=== PATIENT | female | born 1955 | race Two or more races ===

== ENCOUNTER → 2024-03-14 | Outpatient (CLI) | payer OTHER, SELFPAY ==
[2024-03-14 08:51] LABS: Glucose Estimated Average 131 mg/dL (80-131); Hemoglobin A1C 6.2 % Hgb (4.8-6.0)
[2024-03-14 09:04] LABS: Alanine Aminotransferase 25 U/L (10-49); Albumin, Serum 4.9 gm/dL (3.4-4.8); Albumin/Globulin Ratio 1.8 (1.2-2.2); Alkaline Phosphatase 67 U/L (46-116); Anion Gap 8 (7-16); Aspartate Amino Transferase 26 U/L (0-34); BUN/Creatinine Ratio 19 Ratio (12-20); Bilirubin,Total 0.5 mg/dL (0.3-1.2); Blood Urea Nitrogen 13 mg/dL (9-23); Calcium 10.3 mg/dL (8.3-10.6); Calcium (Corrected) 10.3 mg/dL (8.5-10.1); Carbon Dioxide 25.2 mMol/L (20.0-31.0); Chloride 106 mMol/L (98-107); Creatinine (Component) 0.7 mg/dL (0.6-1.3); Free T4 (Free Thyroxine) 1.32 ng/dL (0.89-1.76); Globulin 2.7 gm/dL (2.3-3.5); Glucose 102 mg/dL (74-106); Osmolality,Calculated 277 (275-295); Potassium 4.1 mMol/L (3.4-5.1); Sodium 139 mMol/L (136-145); Thyroid Stimulating Hormone 1.06 uIU/mL (0.55-4.78); Total Protein 7.6 gm/dL (5.7-8.2); eGFR > 60 See Note
[2024-03-14 09:40] LABS: Creatinine MALB Rnd Ur 42 mg/dL (30-125); Microalbumin Creat Ratio 12 mg/gCrea (<30); Microalbumin, Random Urine 5 mg/L (0-300)
== END | disposition home or self-care (01) ==
LOC: COPL 06:42
PROVIDERS: PCP Internal Medicine; Referring Provider Internal Medicine; Visit Provider Internal Medicine
DX: E11.9 Type 2 diabetes mellitus without complications (principal)
CPT/HCPCS: 36415; 80053; 82043; 82570; 83036; 84439; 84443

== ENCOUNTER → 2024-07-06 | Outpatient (CLI) | payer OTHER, SELFPAY ==
--- NOTE | 2024-07-06 08:15 | EKG_ITS ---
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
[2024-07-06 08:42] LABS: Basophils # (Auto) 0.1 Thou/mm3 (0.0-0.2); Basophils % (Auto) 1 % (0-2.5); Eosinophils # (Auto) 0.3 Thou/mm3 (0.0-0.5); Eosinophils % (Auto) 4 % (0-10); Hematocrit 36.3 % (36.0-46.0); Hemoglobin 12.1 g/dL (12.0-16.0); Immature Granulocytes % (Auto) 0 % (0-0); Immature Granulocytes Auto 0.02 Thou/mm3 (0.00-0.00); Lymphocytes # (Auto) 2.4 Thou/mm3 (1.0-4.8); Lymphocytes % (Auto) 30 % (10-50); Mean Corpuscular HGB Conc 33.3 g/dl (31.0-37.0); Mean Corpuscular Hemoglobin 30.4 pg (25.0-35.0); Mean Corpuscular Volume 91 fL (80-100); Monocytes # (Auto) 0.5 Thou/mm3 (0.0-0.8); Monocytes % (Auto) 6 % (0-12); Neutrophils # (Auto) 4.9 Thou/mm3 (1.8-7.7); Neutrophils % (Auto) 60 % (37-80); Nucleated Red Blood Cell % 0 /100 WBC (0); Platelet Count 248 Thou/mm3 (140-440); RDW Standard Deviation 41.8 fL (36.4-46.3); Red Blood Count 3.98 Miln/mm3 (4.00-5.20); White Blood Count 8.2 Thou/mm3 (3.6-11.0)
[2024-07-06 09:00] LABS: Glucose Estimated Average 134 mg/dL (80-131); Hemoglobin A1C 6.3 % Hgb (4.8-6.0); Phosphorous 3.4 mg/dL (2.4-5.1)
== END | disposition home or self-care (01) ==
LOC: COPL 07:28
PROVIDERS: PCP Internal Medicine; Referring Provider Orthopaedic Surgery; Visit Provider Orthopaedic Surgery
DX: M75.121 Complete rotator cuff tear or rupture of right shoulder, not specified as traumatic (principal); M25.511 Pain in right shoulder
CPT/HCPCS: 36415; 83036; 84100; 85025; 93005

== ENCOUNTER 2024-10-14 18:30 | Emergency (ER) | payer OTHER, SELFPAY ==
[2024-10-14 18:32] VITALS: BMI 23.6
--- NOTE | 2024-10-14 18:34 | EKG_ITS ---
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
[2024-10-14 18:51] VITALS: BP 161/82; PULSE 85; RESP 18; TEMP 37.2; O2SAT 97
--- NOTE | 2024-10-14 18:53 | XR_ITS ---
Examination: CT brain head without contrast. 2-D sagittal coronal reconstructions Date and time of exam:October 14, 2024 2000 hours Comparison January 28, 2019 INDICATIONS: Headache dizziness today CTDI: vol (mGy):47 DLP: (mGycm):958 Technique: Multiple CT axial sections of the brain have been obtained, 5 mm slice thickness. Contrast has not been administered. 2-D sagittal, coronal reconstructions have been obtained Low dose protocols were performed. One or more of the following dose reduction techniques were used; automated exposure control, adjustment of the mA and/or KV according to patient size, use of iterative reconstruction technique. Findings: No significant ventricular enlargement. Intra-axial or extra-axial hemorrhage density is not seen. No mass effect or midline shift Basal cisterns are not remarkable. Fourth ventricle is midline. Cranial vault intact. Impression: Negative for acute hemorrhage, mass effect or midline shift Advise clinical correlation and follow up accordingly
--- NOTE | 2024-10-14 18:53 | XR_ITS ---
Examination: PA chest single view TECHNIQUE: Upright PA chest single view Date and time: October 14, 2024, 1917 hours Comparison March 03, 2016 INDICATIONS: Cardiac palpitations today FINDINGS: Normal heart size. The lungs are clear. The osseous structures are intact. IMPRESSION: No active disease.
--- NOTE | 2024-10-14 18:53 | PD.EDRME ---
Rapid Medical Screening Exam RME Arrival date/time: 10/14/24 18:30 Chief Complaint: Headache Time Seen by Provider: 10/14/24 18:46 Vital signs: Vital Signs Temperature 98.9 F 10/14/24 18:51 Pulse Rate 85 10/14/24 18:51 Respiratory Rate 18 10/14/24 18:51 Blood Pressure 161/82 H 10/14/24 18:51 Pulse Oximetry (%) 97 10/14/24 18:51 Oxygen Delivery Method Room Air 10/14/24 18:51 RME Narrative: Intermittent palpitations, lightheadedness and headaches for the past week.
[2024-10-14 19:19] LABS: Basophils # (Auto) 0.1 Thou/mm3 (0.0-0.2); Basophils % (Auto) 1 % (0-2.5); Eosinophils # (Auto) 0.3 Thou/mm3 (0.0-0.5); Eosinophils % (Auto) 3 % (0-10); Hematocrit 34.6 % (36.0-46.0); Hemoglobin 11.7 g/dL (12.0-16.0); Immature Granulocytes % (Auto) 0 % (0-0); Immature Granulocytes Auto 0.03 Thou/mm3 (0.00-0.00); Lymphocytes # (Auto) 4.2 Thou/mm3 (1.0-4.8); Lymphocytes % (Auto) 43 % (10-50); Mean Corpuscular HGB Conc 33.8 g/dl (31.0-37.0); Mean Corpuscular Hemoglobin 30.7 pg (25.0-35.0); Mean Corpuscular Volume 91 fL (80-100); Monocytes # (Auto) 0.7 Thou/mm3 (0.0-0.8); Monocytes % (Auto) 7 % (0-12); Neutrophils # (Auto) 4.5 Thou/mm3 (1.8-7.7); Neutrophils % (Auto) 46 % (37-80); Nucleated Red Blood Cell % 0 /100 WBC (0); Platelet Count 279 Thou/mm3 (140-440); RDW Standard Deviation 43.8 fL (36.4-46.3); Red Blood Count 3.81 Miln/mm3 (4.00-5.20); White Blood Count 9.6 Thou/mm3 (3.6-11.0)
[2024-10-14 19:41] LABS: Alanine Aminotransferase 16 U/L (10-49); Albumin, Serum 4.9 gm/dL (3.4-4.8); Albumin/Globulin Ratio 2.3 (1.2-2.2); Alkaline Phosphatase 61 U/L (46-116); Anion Gap 7 (7-16); Aspartate Amino Transferase 23 U/L (0-34); BUN/Creatinine Ratio 23 Ratio (12-20); Bilirubin,Total 0.3 mg/dL (0.3-1.2); Blood Urea Nitrogen 14 mg/dL (9-23); Calcium 10.7 mg/dL (8.3-10.6); Calcium (Corrected) 10.7 mg/dL (8.5-10.1); Carbon Dioxide 24.3 mMol/L (20.0-31.0); Chloride 106 mMol/L (98-107); Creatinine (Component) 0.6 mg/dL (0.6-1.3); Estimated Creatinine Clearance 67.7 mL/min (>60); Free T4 (Free Thyroxine) 1.29 ng/dL (0.89-1.76); Globulin 2.1 gm/dL (2.3-3.5); Glucose 119 mg/dL (74-106); Magnesium 1.8 mg/dL (1.6-2.6); Osmolality,Calculated 275 (275-295); Sodium 137 mMol/L (136-145); Thyroid Stimulating Hormone 1.44 uIU/mL (0.55-4.78); Troponin I < 0.002 ng/mL (0.0-0.045); eGFR > 60 See Note
--- NOTE | 2024-10-14 21:29 | EDNOTE_ITS ---
<Statement entered by Odalys Luz MD - 10/15/24 04:32> As co-signing physician, I was present and available for consult prn. I concur with the plan and care as documented by the midlevel provider. ED Headache RME/HPI General Chief Complaint: Headache Stated Complaint: HURT, PALPITATIONS, AND DIZZINESS FOR 1 WEEK Time Seen by Provider: 10/14/24 18:46 Arrival date/time: 10/14/24 18:30 RME / HPI RME / HPI Narrative: 69-year-old female patient was brought in by family for evaluation regarding headache. Patient has been having on and off headache for 1 week, associated with dizziness, palpitation, severity moderate. Patient symptoms started about 3 hours ago, patient had to taffy puller due to headache and dizziness. Denies any chest pain. She took her losartan 3 hours ago prior to ER visit. Patient denies any blurry vision. Denies any upper or lower extremity weakness. Denies any slurring of speech patient is ambulatory . Related Data Home Medications ?Medication ?Instructions ?Recorded ?Confirmed levothyroxine 75 mcg capsule 75 mcg PO QDAY 01/28/19 0 07/13/22 losartan 50 mg tablet 50 mg PO QDAY 01/28/1907/13 rosuvastatin 5 mg tablet 5 mg PO QDAY 01/28/19 sitagliptin phosphate 100 mg 100 mg PO QDAY 01/28/19 0 07/13/22 tablet (Januvia) alendronate 70 mg tablet 70 mg PO QWEEK 07/10/2206/18 insulin glargine 100 unit/mL (3 10 unit subcut QDAY 07/13/22 mL) subcutaneous pen (Lantus Solostar U-100 Insulin) sitagliptin phos 50 mg-metformin 1 tab PO QDAY 3 07/13/22 ER 1,000 mg tablet,extend rel 24h mp (Janumet XR) Allergies Allergy/AdvReac Type Severity Reaction Status Date / Time nitrofurantoin Allergy Severe RASH / Verified 10/14/24 18:34 SHORTNESS OF BREATH Sulfa (Sulfonamide Allergy Severe RASH / Verified 10/14/24 18:34 Antibiotics) SHORTNESS OF BREATH Review of Systems Review of Systems Narrative Review of Systems: Review of system reviewed and within normal limits except mentioned in HPI ED Exam Narrative Physical exam: VITAL SIGNS: Reviewed. GENERAL APPEARANCE: Alert and interactive, follows commands, no acute distress, HEAD AND FACE: Non-traumatic. ENT: PERRL, pink conjunctivitis, eyelid no trauma, Mucous membrane moist. NECK: Supple, nontender, no nuchal rigidity. CHEST: No tenderness, no crepitus, no paradoxical movement, no retractions. LUNGS: Clear, well ventilated, symmetric, no rales, no wheezing, no ronchi, no stridor, good breath sounds bilaterally. HEART: Regular rate, regular rhythm, no murmur, no gallops. ABDOMEN: Soft, positive bowel sounds, nondistended, no guarding, nontender, no rebound, no masses, RECTAL: Deferred. GENITAL: Deferred. NEUROLOGICAL: Gross motor function intact sensory function intact, Appropriate for age. MUSCULOSKELETAL: low back nontender, full range of motion. EXTREMITIES: Nontender, full range of motion. SKIN: Color pink, dry, no rash, no lacerations, no abrasions, no contusions. LYMPHATICS: Deferred. Course Quality Measures none Orders Category Date Time Status EKG (ED ONLY) *Do not use* NOW Care 10/14/24 18:[address] head/brain wo con Stat Exams 10/14/24 18:53 Completed CXR [XR chest 1V] Stat Exams 10/14/24 18:53 Completed EKG (ED Only) Stat Exams 10/14/24 18:34 Draft CBC Stat Lab 10/14/24 19:03 Completed CMP [Comprehensive Metabolic Panel] Stat Lab 10/14/24 19:03 Completed Free T4 (Free Thyroxine) Stat Lab 10/14/24 19:03 Completed Magnesium Stat Lab 10/14/24 19:03 Completed TSH [Thyroid Stimulating Hormone] Stat Lab 10/14/24 19:03 Completed Troponin I Stat Lab 10/14/24 19:03 Completed UA, C/S IF [Urinalysis, C/S if Indicated] Stat Lab 10/14/24 21:46 Completed Acetaminophen Tab [Tylenol ES Tab] Med 10/14/24 21:32 Discontinued 500 mg PO X1 ONE Vital Signs Vital signs: Vital Signs Temperature 98.9 F 10/14/24 18:51 Pulse Rate 85 10/14/24 18:51 Respiratory Rate 18 10/14/24 18:51 Blood Pressure 161/82 H 10/14/24 18:51 Pulse Oximetry (%) 97 10/14/24 18:51 Oxygen Delivery Method Room Air 10/14/24 18:51 Headache MDM Narrative MDM Narrative:: 69-year-old female patient was brought in by family for evaluation regarding headache. Patient has been having on and off headache for 1 week, associated with dizziness, palpitation, severity moderate. Patient symptoms started about 3 hours ago, patient had to taffy puller due to headache and dizziness. Denies any chest pain. She took her losartan 3 hours ago prior to ER visit. Patient denies any blurry vision. Denies any upper or lower extremity weakness. Denies any slurring of speech patient is ambulatory . CT scan of the head came back with no acute pathology. Reversible workup also came back normal troponin is normal urinalysis no UTI. I personally reviewed and interpreted the x-ray of this patient. There is no acute abnormalities found, no infiltrates no pneumothorax no hemothorax normal chest x-ray. Review of other structures was without significant abnormal findings also. I additionally reviewed the radiologist report and agree with the interpretation. EKG showed normal sinus rhythm, ventricular rate of 82 bpm, no ST segment elevation or depression noted. Results discussed with the patient. I ordered for Tylenol however patient refused Tylenol. She told me that she is okay and stable to go home. I told her to monitor her blood pressure and show it to her doctor. Patient agrees with the plan she is not having any chest pain prior to discharge. She is ambulatory unaided. Patient data External records reviewed:: None Clinical information provided by:: patient and family Social determinants that could affect healthcare access:: none Patient has the following chronic illnesses:: Hypertension How is presenting disease/condition affected by chronic disease/condition?: uneffected by Evaluation data The following diagnostics were reviewed and interpreted by me:: lab results, radiology exam(s) and EKG tracing(s) Lab and/or radiology exams considered but not ordered:: None Interpretation Summary: None Medications / Prescriptions Medications or Prescriptions considered but not ordered:: None Medication administrations:: Medication Administration History Discontinued Medications Acetaminophen (Acetaminophen 500 Mg Tablet) 500 mg PO X1 ONE Stop: 10/14/24 21:33 Last Admin: 10/14/24 21:43 Dose: Not Given Documented By: Non-Admin Reason: Patient Refused Tylenol Consultations Consultation(s) initiated? (list below): No Diagnosis Differential diagnosis headache: migraine, tension headache and headache Most likely diagnosis given after review of the tests above:: Headache Admission Indicated Admission indicated?: not indicated Admission Request Was there a request for admission?: No Disposition Plan Disposition Plan: Discharge Discharge Attestation Discharge Attestation: The patient and all family members were given an opportunity to ask questions and understood the discharge instructions. Discharge instructions specifically effects, indications for sooner follow up or return to the emergency department, and the expected course of current diagnosis. Patient condition: Stable Discharge Plan Plan Patient Disposition: HOME (Self Care) Discharge Disposition comment: Stable Prescriptions/Referrals Prescriptions/Med Rec: No Action losartan 50 mg Tablet 50 mg PO QDAY rosuvastatin 5 mg Tablet 5 mg PO QDAY Januvia 100 mg Tablet 100 mg PO QDAY levothyroxine 75 mcg Capsule 75 mcg PO QDAY alendronate 70 mg tablet 70 mg PO QWEEK insulin glargine [Lantus Solostar U-100 Insulin] 100 unit/mL (3 mL) insulin pen 10 unit SUBCUT QDAY Janumet XR 50-1,000 mg tablet, ER multiphase 24 hr 1 tab PO QDAY Referrals: Addis Phillips MD [Primary Care Provider] - In 1 week Problem List Clinical Impression: Headache Patient/Caregiver Discharge Instructions Discharge Activity: activity as tolerated Education Materials: Self-Care for Headaches Additional Instructions: Thank you for the opportunity for serving you today. You are stable for discharged . You are advised to: Follow-up with your PCP in 1 to 2 days Return to ED for worsening of symptoms Increase oral fluids Monitor your blood pressure, log it twice a day and show it to your doctor after 1 week You may take Tylenol or Motrin as needed for headache Print Language: Cymraes Stand Alone Forms: Alejandra Award Info., Patient Portal Info Letter PA/YASMINE Supervising Physician PA/YASMINE Supervising Physician: MD Natty
[2024-10-14 21:56] LABS: Collection Type, Urine Clean Catch
[2024-10-14 22:07] LABS: Bilirubin,Urine Negative (Negative); Blood,Urine Negative (Negative); Clarity,Urine Clear (Clear/Hazy); Color,Urine Lt-Yellow (Lt Yel-Yel); Culture Indicated,Urine Not Indicated; Glucose, Urine Negative (Negative); Ketones,Urine Negative (Negative); Leukocyte Esterase,Urine Negative (Negative); Nitrite,Urine Negative (Negative); PH,Urine 6.5 (5.0-7.0); Protein,Urine Negative (Neg - Trace); RBC,Urine 4 /hpf (0-3); Specific Gravity,Urine 1.009 (1.001-1.035); Squamous Epithelial Cell,Urine 1 /hpf (0-5); Urobilinogen,Urine Negative mg/dL (0.0-1.0); WBC,Urine 1 /hpf (0-5)
== END 2024-10-14 22:32 | disposition home or self-care (01) ==
PROVIDERS: Nurse Practitioner Family; Physician Assistant; Emergency Provider Emergency Medicine; PCP Internal Medicine
DX: R51.9 Headache, unspecified (principal); R00.2 Palpitations
CPT/HCPCS: 36415; 70450; 71045; 80053; 81001; 83735; 84439; 84443; 84484; 85025; 93005; 99284

== ENCOUNTER → 2024-11-21 | Outpatient (CLI) | payer OTHER, SELFPAY ==
[2024-11-21 11:55] LABS: Creatinine MALB Rnd Ur 15 mg/dL (30-125); Microalbumin, Random Urine < 3 mg/L (0-300)
== END | disposition home or self-care (01) ==
LOC: SLDO 10:15
PROVIDERS: PCP Internal Medicine; Referring Provider Internal Medicine; Visit Provider Internal Medicine
DX: E11.9 Type 2 diabetes mellitus without complications (principal)
CPT/HCPCS: 82043; 82570

== ENCOUNTER → 2024-12-27 | Outpatient (CLI) | payer OTHER, SELFPAY ==
[2024-12-27 09:32] LABS: Basophils # (Auto) 0.1 Thou/mm3 (0.0-0.2); Basophils % (Auto) 1 % (0-2.5); Eosinophils # (Auto) 0.3 Thou/mm3 (0.0-0.5); Eosinophils % (Auto) 3 % (0-10); Hematocrit 34.7 % (36.0-46.0); Hemoglobin 11.4 g/dL (12.0-16.0); Immature Granulocytes Auto 0.01 Thou/mm3 (0.00-0.00); Lymphocytes # (Auto) 3.1 Thou/mm3 (1.0-4.8); Lymphocytes % (Auto) 37 % (10-50); Mean Corpuscular HGB Conc 32.9 g/dl (31.0-37.0); Mean Corpuscular Hemoglobin 30.2 pg (25.0-35.0); Mean Corpuscular Volume 92 fL (80-100); Monocytes # (Auto) 0.7 Thou/mm3 (0.0-0.8); Monocytes % (Auto) 8 % (0-12); Neutrophils # (Auto) 4.3 Thou/mm3 (1.8-7.7); Neutrophils % (Auto) 51 % (37-80); Nucleated Red Blood Cell # 0.00 Thou/mm3 (0.00-0.00); Nucleated Red Blood Cell % 0 /100 WBC (0); Platelet Count 287 Thou/mm3 (140-440); RDW Standard Deviation 43.4 fL (36.4-46.3); Red Blood Count 3.77 Miln/mm3 (4.00-5.20); White Blood Count 8.4 Thou/mm3 (3.6-11.0)
[2024-12-27 09:46] LABS: Glucose Estimated Average 137 mg/dL (80-131); Hemoglobin A1C 6.4 % Hgb (4.8-6.0)
[2024-12-27 09:53] LABS: Cardiac Risk Estimate 2.3 RATIO (3.7-5.6); Cholesterol 137 mg/dL (132-200); Free T4 (Free Thyroxine) 1.02 ng/dL (0.89-1.76); HDL Cholesterol 60 mg/dL (40-60); LDL Cholesterol,Calculated 58 mg/dL (0-130); Thyroid Stimulating Hormone 5.09 uIU/mL (0.55-4.78); Triglycerides 95 mg/dL (30-150)
== END | disposition home or self-care (01) ==
LOC: COPL 07:56
PROVIDERS: PCP Internal Medicine; Referring Provider Internal Medicine; Visit Provider Internal Medicine
DX: E11.9 Type 2 diabetes mellitus without complications (principal); D50.0 Iron deficiency anemia secondary to blood loss (chronic); E03.4 Atrophy of thyroid (acquired)
CPT/HCPCS: 36415; 80061; 83036; 84439; 84443; 85025

== ENCOUNTER → 2025-03-06 | Outpatient (CLI) | payer OTHER, SELFPAY ==
[2025-03-06 07:57] LABS: Basophils # (Auto) 0.1 Thou/mm3 (0.0-0.2); Basophils % (Auto) 1 % (0-2.5); Eosinophils # (Auto) 0.2 Thou/mm3 (0.0-0.5); Eosinophils % (Auto) 2 % (0-10); Hematocrit 34.6 % (36.0-46.0); Hemoglobin 11.7 g/dL (12.0-16.0); Immature Granulocytes Auto 0.02 Thou/mm3 (0.00-0.00); Immature Reticulocyte Fraction 8.4 % (3.0-15.9); Lymphocytes # (Auto) 3.6 Thou/mm3 (1.0-4.8); Lymphocytes % (Auto) 34 % (10-50); Mean Corpuscular HGB Conc 33.8 g/dl (31.0-37.0); Mean Corpuscular Hemoglobin 31.4 pg (25.0-35.0); Mean Corpuscular Volume 93 fL (80-100); Monocytes # (Auto) 0.7 Thou/mm3 (0.0-0.8); Monocytes % (Auto) 6 % (0-12); Neutrophils # (Auto) 5.9 Thou/mm3 (1.8-7.7); Neutrophils % (Auto) 56 % (37-80); Nucleated Red Blood Cell # 0.00 Thou/mm3 (0.00-0.00); Nucleated Red Blood Cell % 0 /100 WBC (0); Platelet Count 249 Thou/mm3 (140-440); RDW Standard Deviation 44.5 fL (36.4-46.3); Red Blood Count 3.73 Miln/mm3 (4.00-5.20); Reticulocyte % (Auto) 1.3 % (0.5-1.5); Reticulocyte Absolute Auto 48.5 Biln/L (25.0-75.0); Reticulocyte Hgb Content 35.5 pg (28.0-35.0); White Blood Count 10.5 Thou/mm3 (3.6-11.0)
[2025-03-06 08:10] LABS: Glucose Estimated Average 140 mg/dL (80-131); Hemoglobin A1C 6.5 % Hgb (4.8-6.0)
[2025-03-06 08:12] LABS: Alanine Aminotransferase 18 U/L (10-49); Albumin, Serum 5.3 gm/dL (3.4-4.8); Albumin/Globulin Ratio 2.7 (1.2-2.2); Alkaline Phosphatase 52 U/L (46-116); Anion Gap 15 (7-16); Aspartate Amino Transferase 25 U/L (0-34); BUN/Creatinine Ratio 20 Ratio (12-20); Bilirubin,Total 0.4 mg/dL (0.3-1.2); Blood Urea Nitrogen 14 mg/dL (9-23); Calcium 10.0 mg/dL (8.3-10.6); Calcium (Corrected) 10.0 mg/dL (8.5-10.1); Carbon Dioxide 23.4 mMol/L (20.0-31.0); Cardiac Risk Estimate 2.3 RATIO (3.7-5.6); Chloride 107 mMol/L (98-107); Cholesterol 135 mg/dL (132-200); Creatinine (Component) 0.7 mg/dL (0.6-1.3); Globulin 2.0 gm/dL (2.3-3.5); Glucose 108 mg/dL (74-106); HDL Cholesterol 59 mg/dL (40-60); LDL Cholesterol,Calculated 53 mg/dL (0-130); Osmolality,Calculated 290 (275-295); Potassium 4.5 mMol/L (3.4-5.1); Sodium 145 mMol/L (136-145); Total Protein 7.3 gm/dL (5.7-8.2); Triglycerides 113 mg/dL (30-150); eGFR > 60 See Note
--- NOTE | 2025-03-06 08:14 | XR_ITS ---
Examination: Abdomen sonogram, complete Date and time of exam: March 06, 2025, 0834 hours INDICATIONS: Abdominal pain beginning 2 weeks ago.. Technique: Multiple real-time grayscale transabdominal sonographic images of the abdomen have been obtained. Findings: Normal gallbladder. Normal common bile duct 0.5 cm Pancreatic head 1.5 cm Aorta not enlarged. Liver 13.2 cm smooth contour Normal hepatopetal portal venous flow Patent IVC Right kidney 9.8 cm cortex 1.8 cm Left kidney 10.0 cm renal cortex 1.6 cm Spleen 7.5 cm IMPRESSION: Normal gallbladder Normal common bile duct
[2025-03-06 08:19] LABS: Iron 65 mcg/dL (50-170); Percent Iron Saturation 19 % (20-55); Total Iron Binding Capacity 336 mcg/dL (250-425); Unsaturated Iron Binding 271 (225-295)
[2025-03-06 08:34] LABS: Vitamin B12 655 pg/mL (211-911)
== END | disposition home or self-care (01) ==
PROVIDERS: PCP Internal Medicine; Referring Provider Internal Medicine; Visit Provider Radiology Diagnostic Radiology
DX: K29.01 Acute gastritis with bleeding (principal); R10.9 Unspecified abdominal pain; D50.0 Iron deficiency anemia secondary to blood loss (chronic); E11.9 Type 2 diabetes mellitus without complications; I10 Essential (primary) hypertension
CPT/HCPCS: 36415; 76700; 80053; 80061; 82607; 83036; 83540; 83550; 85025; 85046

== ENCOUNTER → 2025-03-27 | Outpatient (CLI) | payer OTHER, SELFPAY ==
--- NOTE | 2025-03-27 13:40 | XR_ITS ---
Examination: Bone densitometry Date and time of exam: March 27, 2025, 1414 hours INDICATIONS: Hysterectomy age 42 levothyroxine 31 years, diabetic, personal history osteopenia Technique: Lumbar spine and hip total bone mineralization values of an calculated. Peak reference and age match control results have been displayed. Findings: Lumbar spine total bone mineralization is 0.917 gm/cm2. This is 1.2 standard deviations below peak reference. This is 0.9 standard deviations above age-matched controls. Hip total bone mineralization is 0.873 gm/cm2 This is 0.7 standard deviations below peak reference. This is 0.7 standard deviations above age-matched controls Impression: There is osteopenia based on lumbar spine measurements. There is osteopenia based on hip measurements Lumbar mineralization is increased 2.6% compared with September 02, 2021 Hip mineralization is increased 4.4% compared with September 02, 2021
== END | disposition home or self-care (01) ==
LOC: CDIM 13:31
PROVIDERS: Referring Provider Internal Medicine; Visit Provider Internal Medicine
DX: M85.89 Other specified disorders of bone density and structure, multiple sites (principal)
CPT/HCPCS: 77080